=== PATIENT | female | born 1955 ===

== ENCOUNTER 2022-07-12 17:32 | Emergency (ER) | payer BC ==
[2022-07-12] MEDS ORDERED: cefTRIAXone 1 GM, Lidocaine 1% 2.1 ML IM ONE ×2 (18:34)
[2022-07-12] MEDS ORDERED: fentaNYL 50 MCG/ML SDV IM ONE (18:34)
[2022-07-12] MEDS ORDERED: Phenazopyridine 95 MG Tab PO ONE (18:35)
[2022-07-12] MEDS ORDERED: cefTRIAXone 1 GM Vial ONE (18:44)
[2022-07-12] MEDS ORDERED: Ondansetron 4 MG Tab.DIS PO ONE (18:57)
== END 2022-07-12 20:16 | disposition home or self-care (01) ==
LOC: JP.ED 17:32
DX: N39.0 Urinary tract infection, site not specified (principal); N32.89 Other specified disorders of bladder; J44.9 Chronic obstructive pulmonary disease, unspecified; Z88.5 Allergy status to narcotic agent
CPT/HCPCS: 96372; 99283; A9270; J0696; J3010; Q0162

== ENCOUNTER 2022-11-08 08:26 | Emergency (ER) | payer SELFPAY ==
[2022-11-08 09:06] LABS: APPEARANCE,URINE TURBID (CLEAR); BACTERIA,URINE FEW; COLOR,URINE RED (YELLOW); EPITHELIAL CELLS,URINE FEW; MUCUS,URINE NOT SEEN; OCCULT BLOOD,URINE LARGE (NEGATIVE); RBC,URINE PACKED (0-5)
[2022-11-08 09:07] LABS: AMORPHOUS SEDIMENT,URINE NOT SEEN
[2022-11-08 09:24] LABS: BASOPHILS ABSOLUTE AUTO 0.06 K/uL (0.00-0.10); BASOPHILS PERCENT AUTO 0.7 % (0.1-1.3); EOSINOPHILS ABSOLUTE AUTO 0.24 K/uL (0.00-0.40); EOSINOPHILS PERCENT AUTO 2.8 % (0.0-5.4); HEMATOCRIT 28.9 % (34.3-46.0); HEMOGLOBIN 9.5 g/dL (11.2-15.5); IMMATURE GRAN ABSOLUTE AUTO 0.04 K/uL (0.00-0.23); IMMATURE GRAN PERCENT AUTO 0.5 % (0.0-0.7); LYMPHOCYTES ABSOLUTE AUTO 0.68 K/uL (0.8-3.3); LYMPHOCYTES PERCENT AUTO 7.9 % (11.4-47.7); MEAN CORPUSCULAR HEMOGLOBIN 29.6 pg (31.6-35.5); MEAN CORPUSCULAR HGB CONC 32.9 g/dL (31.6-35.5); MONOCYTES ABSOLUTE AUTO 0.67 K/uL (0.20-0.90); MONOCYTES PERCENT AUTO 7.7 % (3.3-12.6); NEUTROPHILS ABSOLUTE AUTO 6.96 K/uL (1.0-7.6); NEUTROPHILS PERCENT AUTO 80.4 % (40.0-78.1); PLATELET COUNT,PLT 237 K/uL (130-375); RED BLOOD CELL COUNT 3.21 M/uL (3.77-5.24); WHITE BLOOD CELL COUNT,WBC 8.7 K/uL (3.2-11.0)
[2022-11-08] MEDS ORDERED: HYDROmorphone 0.5 MG/0.5 ML Syringe IVPUSH ONE ×2 (09:33→14:22)
[2022-11-08] MEDS ORDERED: Sodium Chloride 0.9% 1,000 ML IV SCH (09:45)
[2022-11-08 09:51] LABS: ALANINE AMINOTRANSFERASE,ALT 14 U/L (12-78); ALBUMIN 3.5 g/dL (3.4-5.0); ALKALINE PHOSPHATASE 49 U/L (46-116); ASPARTATE AMNIOTRANSFERASE,AST 14 U/L (15-37); BILIRUBIN TOTAL 0.2 mg/dL (0.2-1.0); BLOOD UREA NITROGEN,BUN 59 mg/dL (7-18); CARBON DIOXIDE,CO2 16 mmol/L (21-32); CHLORIDE,CL 100 mmol/L (100-108); EST CRCL DRUG DOSING (CG) 8.27 mL/min; ESTIMATED GFR 8 mL/min (>60); GLUCOSE RANDOM 112 mg/dL (74-106); PROTEIN TOTAL,TP 6.9 g/dL (6.4-8.2); SODIUM,NA 133 mmol/L (140-148)
[2022-11-08 09:54] LABS: CREATININE 5.4 mg/dL (0.6-1.0)
[2022-11-08] MEDS ORDERED: cefTRIAXone 2 GM in Sodium Chloride 0.9% 50 ML IV ONE (09:57)
[2022-11-08] MEDS ORDERED: Ondansetron 4 MG/2 ML SDV IVPUSH ONE (10:29)
[2022-11-08] MEDS ORDERED: Prochlorperazine 10 MG/2 ML SDV IVPUSH ONE (11:00)
== END 2022-11-08 14:56 ==
LOC: JP.ED 08:26
DX: R31.9 Hematuria, unspecified (principal); C67.9 Malignant neoplasm of bladder, unspecified; E86.0 Dehydration; N28.9 Disorder of kidney and ureter, unspecified; N13.5 Crossing vessel and stricture of ureter without hydronephrosis; J44.9 Chronic obstructive pulmonary disease, unspecified; Z88.5 Allergy status to narcotic agent
CPT/HCPCS: 36415; 74176; 80053; 81001; 85025; 86140; 87086; 96361; 96365; 96375; 96376; 99285; J0696; J0780; J1170; J2405; J3490; J7030